=== PATIENT | male | born 1985 | race Two or more races ===

== ENCOUNTER 2021-06-23 12:16 | Outpatient (REF) | payer OTHER, SELFPAY | END 2021-06-23 12:17 | disposition home or self-care (01) | LOC: HO.BBR 12:16 | PROVIDERS: Visit Provider Internal Medicine Medical Oncology | DX: D45 Polycythemia vera (principal) | CPT/HCPCS: 85014; 85018; 99195 ==

== ENCOUNTER 2021-07-01 13:55 | Outpatient (REF) | payer OTHER, SELFPAY | END 2021-07-01 13:56 | disposition home or self-care (01) | LOC: HO.BBR 13:55 | PROVIDERS: Visit Provider Internal Medicine Medical Oncology | DX: D45 Polycythemia vera (principal) | CPT/HCPCS: 85014; 85018; 99195 ==

== ENCOUNTER 2021-07-29 14:48 | Outpatient (REF) | payer OTHER, SELFPAY | END 2021-07-29 14:49 | disposition home or self-care (01) | LOC: HO.BBR 14:48 | PROVIDERS: Visit Provider Internal Medicine Medical Oncology | DX: D45 Polycythemia vera (principal) | CPT/HCPCS: 85014; 85018; 99195 ==

== ENCOUNTER 2021-09-02 15:26 | Outpatient (REF) | payer OTHER, SELFPAY | END 2021-09-02 15:27 | disposition home or self-care (01) | LOC: HO.BBR 15:26 | PROVIDERS: Visit Provider Internal Medicine Medical Oncology | DX: D45 Polycythemia vera (principal) | CPT/HCPCS: 85014; 85018; 99195 ==

== ENCOUNTER 2021-09-30 14:55 | Outpatient (REF) | payer OTHER, SELFPAY | END 2021-09-30 14:56 | disposition home or self-care (01) | LOC: HO.BBR 14:55 | PROVIDERS: Visit Provider Internal Medicine Medical Oncology | DX: D45 Polycythemia vera (principal) | CPT/HCPCS: 85014; 85018; 99195 ==

== ENCOUNTER 2021-11-12 15:30 | Outpatient (REF) | payer OTHER, SELFPAY | END 2021-11-12 15:31 | disposition home or self-care (01) | LOC: HO.BBR 15:30 | PROVIDERS: Visit Provider Internal Medicine Medical Oncology | DX: D45 Polycythemia vera (principal) | CPT/HCPCS: 85018 ==

== ENCOUNTER 2021-12-22 14:57 | Outpatient (REF) | payer OTHER, SELFPAY | END 2021-12-22 14:58 | disposition home or self-care (01) | LOC: HO.BBR 14:57 | PROVIDERS: Visit Provider Internal Medicine Medical Oncology | DX: D45 Polycythemia vera (principal) | CPT/HCPCS: 85014; 85018; 99195 ==

== ENCOUNTER 2022-03-24 15:25 | Outpatient (REF) | payer OTHER, SELFPAY | END 2022-03-24 15:26 | disposition home or self-care (01) | LOC: HO.BBR 15:25 | PROVIDERS: Visit Provider Internal Medicine Medical Oncology | DX: Z13.89 Encounter for screening for other disorder (principal) ==

== ENCOUNTER 2022-05-25 14:56 | Outpatient (REF) | payer OTHER, SELFPAY | END 2022-05-25 14:57 | disposition home or self-care (01) | LOC: HO.BBR 14:56 | PROVIDERS: Visit Provider Internal Medicine Medical Oncology | DX: D75.1 Secondary polycythemia (principal) | CPT/HCPCS: 85018; 99195 ==

== ENCOUNTER 2022-07-29 14:57 | Outpatient (REF) | payer OTHER, SELFPAY | END 2022-07-29 14:58 | disposition home or self-care (01) | LOC: HO.BBR 14:57 | PROVIDERS: Visit Provider Internal Medicine Medical Oncology | DX: D75.1 Secondary polycythemia (principal) | CPT/HCPCS: 85014; 85018; 99195 ==

== ENCOUNTER 2022-10-28 14:59 | Outpatient (REF) | payer OTHER, SELFPAY | END 2022-10-28 15:00 | disposition home or self-care (01) | LOC: HO.BBR 14:59 | PROVIDERS: Visit Provider Internal Medicine Medical Oncology | DX: D75.1 Secondary polycythemia (principal) | CPT/HCPCS: 85018; 99195 ==

== ENCOUNTER 2023-02-17 11:57 | Outpatient (REF) | payer BC, SELFPAY | END 2023-02-17 11:58 | disposition home or self-care (01) | LOC: HO.BBR 11:57 | PROVIDERS: Visit Provider Internal Medicine Medical Oncology | DX: E83.110 Hereditary hemochromatosis (principal) | CPT/HCPCS: 85018; 99195 ==

== ENCOUNTER 2023-06-24 13:57 | Outpatient (REF) | payer BC, SELFPAY | END 2023-06-24 13:58 | disposition home or self-care (01) | LOC: HO.BBR 13:57 | PROVIDERS: Visit Provider Internal Medicine Medical Oncology | DX: D75.1 Secondary polycythemia (principal) | CPT/HCPCS: 85018; 99195 ==

== ENCOUNTER 2023-10-13 15:23 | Outpatient (REF) | payer BC, SELFPAY | END 2023-10-13 15:24 | disposition home or self-care (01) | LOC: HO.BBR 15:23 | PROVIDERS: Visit Provider Internal Medicine Medical Oncology | DX: D75.1 Secondary polycythemia (principal) | CPT/HCPCS: 85018; 99195 ==

== ENCOUNTER 2024-02-09 15:23 | Outpatient (REF) | payer BC, SELFPAY | END 2024-02-09 15:24 | disposition home or self-care (01) | LOC: HO.BBR 15:23 | PROVIDERS: Visit Provider Internal Medicine Medical Oncology | DX: D75.1 Secondary polycythemia (principal) | CPT/HCPCS: 85018; 99195 ==

== ENCOUNTER 2024-05-10 14:28 | Outpatient (REF) | payer BC, SELFPAY | END 2024-05-10 14:29 | disposition home or self-care (01) | LOC: HO.BBR 14:28 | PROVIDERS: Visit Provider Internal Medicine Medical Oncology | DX: D75.1 Secondary polycythemia (principal) | CPT/HCPCS: 85014; 85018; 99195 ==

== ENCOUNTER 2024-08-23 14:48 | Outpatient (REF) | payer BC, SELFPAY | END 2024-08-23 14:49 | disposition home or self-care (01) | LOC: HO.BBR 14:48 | PROVIDERS: Visit Provider Internal Medicine Medical Oncology | DX: D75.1 Secondary polycythemia (principal) | CPT/HCPCS: 85018; 99195 ==

== ENCOUNTER 2024-11-22 15:20 | Outpatient (REF) | payer BC, SELFPAY | END 2024-11-22 15:21 | disposition home or self-care (01) | LOC: HO.BBR 15:20 | PROVIDERS: Visit Provider Internal Medicine Medical Oncology | DX: D75.1 Secondary polycythemia (principal) | CPT/HCPCS: 85014; 85018; 99195 ==

== ENCOUNTER 2025-02-21 14:45 | Outpatient (REF) | payer BC, SELFPAY | END 2025-02-21 14:46 | disposition home or self-care (01) | LOC: HO.BBR 14:45 | PROVIDERS: Visit Provider Internal Medicine Medical Oncology | DX: D75.1 Secondary polycythemia (principal) | CPT/HCPCS: 85014; 85018; 99195 ==

== ENCOUNTER 2025-05-30 15:20 | Outpatient (REF) | payer BC, SELFPAY | END 2025-05-30 15:21 | disposition home or self-care (01) | LOC: HO.BBR 15:20 | PROVIDERS: Visit Provider Internal Medicine Medical Oncology | DX: Z13.89 Encounter for screening for other disorder (principal) ==

== ENCOUNTER 2025-05-31 10:47 | Outpatient (REF) | payer BC, SELFPAY | END 2025-05-31 10:48 | disposition home or self-care (01) | LOC: HO.BBR 10:47 | PROVIDERS: Visit Provider Internal Medicine Medical Oncology | DX: D75.1 Secondary polycythemia (principal) | CPT/HCPCS: 85018; 99195 ==

== ENCOUNTER 2025-08-30 14:34 | Outpatient (REF) | payer BC, SELFPAY | END 2025-08-30 14:35 | disposition home or self-care (01) | LOC: HO.BBR 14:34 | PROVIDERS: Visit Provider Internal Medicine Medical Oncology | DX: D75.1 Secondary polycythemia (principal) | CPT/HCPCS: 85014; 85018; 99195 ==